=== PATIENT | female | born 1975 | race Caucasian/White ===

== ENCOUNTER 2020-09-18 18:30 | Inpatient (IN) | payer BC, OTHER ==
[~2020-09-18] VITALS: Ht 172.7 cm; Wt 93.3 kg
[2020-09-18 19:07] LABS: ABG BASE EXCESS -0.2 mmol/L (-2.0-3.0); ABG HCO3 22.6 mmol/L (21.0-28.0); ABG OXYGEN SATURATION 91.2 % (95.0-99.0); ABG PCO2 31 mmHg (32-45)
[2020-09-18 19:23] VITALS: BP 141/81
[2020-09-18 19:25] LABS: BASOPHILS % (AUTO) 0.1 % (0.0-5.0); EOSINOPHILS % (AUTO) 2.6 % (0.0-8.0); HEMATOCRIT 35.7 % (36-48); LYMPHOCYTES % (AUTO) 16.7 % (21.0-51.0); MEAN CORPUSCULAR HEMOGLOBIN 29.4 pg (27.0-33.0); MEAN CORPUSCULAR HGB CONC 32.8 g/dL (32.0-36.0); MEAN CORPUSCULAR VOLUME 89.7 fL (79-99); MONOCYTES % (AUTO) 5.4 % (3.0-13.0); NEUTROPHILS % (AUTO) 74.7 % (40.0-77.0); PLATELET COUNT (AUTO) 199 K/uL (130-400); RED BLOOD CELL COUNT(AUTO) 3.98 MIL/uL (4.00-5.50); RED CELL DISTRIBUTION WIDTH 13.3 % (11.0-15.5); WHITE BLOOD COUNT (AUTO) 7.8 K/uL (4.8-10.8)
[2020-09-18] MEDS ORDERED: ALBUTEROL INHALER 90MCG/INH IH PRN (19:30)
[2020-09-18 19:36] LABS: CREATININE 0.9 mg/dL (0.5-1.5); POTASSIUM 3.6 mmol/L (3.5-5.1)
[2020-09-18 19:41] LABS: ALBUMIN 3.4 g/dL (3.5-5.0); BILIRUBIN,TOTAL 0.7 mg/dL (0.2-1.0); TOTAL PROTEIN, SERUM 7.9 g/dL (6.0-8.3)
[2020-09-18 19:44] VITALS: BP 139/77
[2020-09-18 19:59] LABS: B-TYPE NATRIURETIC PEPTIDE 34 pg/mL (0-100)
[2020-09-18] MEDS ORDERED: ACETAMINOPHEN WITH CODEINE 1 TAB TAB PO ONE (20:30)
[2020-09-18] MEDS ORDERED: ONDANSETRON 4MG INJ IVP ONE (20:30)
[2020-09-18] MEDS ORDERED: ERGOCALCIFEROL (VITAMIN D2) 50,000 UNIT CAPSULE PO ONE (21:00)
[2020-09-18] MEDS ORDERED: LACTATED RINGERS 1000ML 1,000 ML IV SCH (21:00)
[2020-09-18] MEDS ORDERED: FAMOTIDINE 20MG TAB PO SCH (21:00)
[2020-09-18] MEDS ORDERED: 0.9%NACL 1000ML 1,000 ML IV SCH (21:00)
[2020-09-18] MEDS ORDERED: PHARMACY COMMUNICATION**REMDESIVIR ORDER MISC SCH (21:00)
[2020-09-18] MEDS: DOXYCYCLINE 100MG+NS 250ML IV SCH (21:45)
[2020-09-18] MEDS: DEXAMETHASONE SOD PHOSPHATE 4 MG/ML 1ML VIAL IVP SCH (21:45)
[2020-09-18] MEDS: CEFTRIAXONE 1G VIAL IVP SCH (21:46)
[2020-09-18] MEDS ORDERED: ALBUTEROL INHALER 90MCG/INH IH SCH (23:30)
[2020-09-19] MEDS: ALBUTEROL INHALER 90MCG/INH IH SCH ×4 (00:18→17:14)
[2020-09-19 05:09] VITALS: BP 118/77
[2020-09-19] MEDS: LEVOTHYROXINE 50 MCG TABLET PO SCH (05:43)
[2020-09-19 05:59] LABS: HEMATOCRIT 31.9 % (36-48); LYMPHOCYTES % (AUTO) 14.6 % (21.0-51.0); MEAN CORPUSCULAR HEMOGLOBIN 29.2 pg (27.0-33.0); MEAN CORPUSCULAR HGB CONC 32.9 g/dL (32.0-36.0); MEAN CORPUSCULAR VOLUME 88.6 fL (79-99); MONOCYTES % (AUTO) 3.5 % (3.0-13.0); NEUTROPHILS % (AUTO) 81.3 % (40.0-77.0); PLATELET COUNT (AUTO) 193 K/uL (130-400); RED CELL DISTRIBUTION WIDTH 13.2 % (11.0-15.5); WHITE BLOOD COUNT (AUTO) 5.4 K/uL (4.8-10.8)
[2020-09-19 06:28] LABS: ALBUMIN 2.9 g/dL (3.5-5.0); BILIRUBIN,TOTAL 0.5 mg/dL (0.2-1.0); CREATININE 0.8 mg/dL (0.5-1.5); POTASSIUM 4.1 mmol/L (3.5-5.1); THYROID STIMULATING HORMONE 1.79 uIU/mL (0.36-3.74); TOTAL PROTEIN, SERUM 7.1 g/dL (6.0-8.3)
[2020-09-19 06:48] LABS: ABG BASE EXCESS 1.4 mmol/L (-2.0-3.0); ABG HCO3 24.6 mmol/L (21.0-28.0); ABG OXYGEN SATURATION 94.5 % (95.0-99.0); ABG PCO2 35 mmHg (32-45)
[2020-09-19 08:00] VITALS: BP 104/68
[2020-09-19] MEDS ORDERED: PHARMACY COMMUNICATION MISC SCH (08:00)
[2020-09-19] MEDS: PANTOPRAZOLE 40 MG TAB DR PO SCH ×2 (09:00→09:21)
[2020-09-19] MEDS: DOXYCYCLINE 100MG+NS 250ML IV SCH ×2 (09:21→20:57)
[2020-09-19] MEDS: PHARMACY COMMUNICATION MISC SCH ×3 (09:21→20:26)
[2020-09-19] MEDS: ZINC SULFATE 220 CAPSULE PO SCH (09:22)
[2020-09-19] MEDS: ASCORBIC ACID 500 MG TAB PO SCH (09:22)
[2020-09-19] MEDS: CEFTRIAXONE 1G VIAL IVP SCH ×2 (09:22→20:57)
[2020-09-19] MEDS: ENOXAPARIN SODIUM 40 MG/0.4 ML SYRINGE SQ SCH (09:25)
[2020-09-19] MEDS ORDERED: COMPOUND IV REFRIGERATED 1 EACH IVSOLN MISC PRN (11:30)
[2020-09-19 12:00] VITALS: BP 108/67
[2020-09-19] MEDS ORDERED: TRAMADOL HCL 50 MG TABLET PO PRN (12:00)
[2020-09-19] MEDS: BARICITINIB (EUA) 2 MG TABLET PO SCH (12:06)
[2020-09-19] MEDS: ACETAMINOPHEN 325 MG TAB PO PRN ×3 (12:14→20:58)
[2020-09-19] MEDS ORDERED: REMDESIVIR (EUA) 520 200 MG in 0.9% NACL 250ML 250 ML IV SCH (15:00)
[2020-09-19] MEDS: ONDANSETRON 4MG INJ IV PRN (17:27)
[2020-09-19 18:32] VITALS: BP 104/65
[2020-09-19 20:00] VITALS: BP 116/54
[2020-09-19] MEDS: DEXAMETHASONE SOD PHOSPHATE 4 MG/ML 1ML VIAL IVP SCH (20:57)
[2020-09-20] VITALS (9 sets, daily range): BP systolic 96–125; BP diastolic 30–77
[2020-09-20] MEDS: ALBUTEROL INHALER 90MCG/INH IH SCH ×5 (00:29→23:46)
[2020-09-20] MEDS: PHARMACY COMMUNICATION MISC SCH ×6 (01:30→21:30)
[2020-09-20] MEDS: ACETAMINOPHEN 325 MG TAB PO PRN ×3 (02:01→20:15)
[2020-09-20] MEDS: REMDESIVIR LABS MISC SCH (06:00)
[2020-09-20] MEDS: LEVOTHYROXINE 50 MCG TABLET PO SCH (06:38)
[2020-09-20] MEDS: PANTOPRAZOLE 40 MG TAB DR PO SCH (09:37)
[2020-09-20] MEDS: BARICITINIB (EUA) 2 MG TABLET PO SCH (09:37)
[2020-09-20] MEDS: DOXYCYCLINE 100MG+NS 250ML IV SCH ×2 (09:37→21:47)
[2020-09-20] MEDS: CEFTRIAXONE 1G VIAL IVP SCH ×2 (09:37→21:46)
[2020-09-20] MEDS: ASCORBIC ACID 500 MG TAB PO SCH (09:37)
[2020-09-20] MEDS: ENOXAPARIN SODIUM 40 MG/0.4 ML SYRINGE SQ SCH (09:38)
[2020-09-20] MEDS: ZINC SULFATE 220 CAPSULE PO SCH (09:38)
[2020-09-20 09:53] LABS: ALBUMIN 3.1 g/dL (3.5-5.0); BILIRUBIN,TOTAL 0.5 mg/dL (0.2-1.0); CREATININE 0.7 mg/dL (0.5-1.5); CRP QUANTITATIVE 77.6 mg/L (0.00-9.0); POTASSIUM 4.2 mmol/L (3.5-5.1); TOTAL PROTEIN, SERUM 7.8 g/dL (6.0-8.3)
[2020-09-20] MEDS: ONDANSETRON 4MG INJ IV PRN (10:10)
[2020-09-20] MEDS: REMDESIVIR (EUA) 520 100 MG in 0.9% NACL 250ML 250 ML IV SCH (14:37)
[2020-09-20 21:15] LABS: BASOPHILS % (AUTO) 0.1 % (0.0-5.0); HEMATOCRIT 35.8 % (36-48); LYMPHOCYTES % (AUTO) 25.8 % (21.0-51.0); MEAN CORPUSCULAR HGB CONC 31.6 g/dL (32.0-36.0); MEAN CORPUSCULAR VOLUME 91.8 fL (79-99); MONOCYTES % (AUTO) 8.3 % (3.0-13.0); PLATELET COUNT (AUTO) 266 K/uL (130-400); RED CELL DISTRIBUTION WIDTH 13.5 % (11.0-15.5)
[2020-09-20] MEDS: DEXAMETHASONE SOD PHOSPHATE 4 MG/ML 1ML VIAL IVP SCH (21:46)
[2020-09-21] VITALS (10 sets, daily range): BP systolic 103–122; BP diastolic 48–71
[2020-09-21] MEDS: PHARMACY COMMUNICATION MISC SCH ×6 (01:30→21:30)
[2020-09-21] MEDS: REMDESIVIR LABS MISC SCH (06:23)
[2020-09-21] MEDS: ALBUTEROL INHALER 90MCG/INH IH SCH ×3 (06:23→17:22)
[2020-09-21 06:34] LABS: BASOPHILS % (AUTO) 0.1 % (0.0-5.0); HEMATOCRIT 33.8 % (36-48); MEAN CORPUSCULAR HEMOGLOBIN 29.4 pg (27.0-33.0); MEAN CORPUSCULAR HGB CONC 32.2 g/dL (32.0-36.0); MEAN CORPUSCULAR VOLUME 91.1 fL (79-99); MONOCYTES % (AUTO) 5.3 % (3.0-13.0); NEUTROPHILS % (AUTO) 79.8 % (40.0-77.0); PLATELET COUNT (AUTO) 304 K/uL (130-400); RED BLOOD CELL COUNT(AUTO) 3.71 MIL/uL (4.00-5.50); RED CELL DISTRIBUTION WIDTH 13.3 % (11.0-15.5); WHITE BLOOD COUNT (AUTO) 7.7 K/uL (4.8-10.8)
[2020-09-21 06:59] LABS: ALBUMIN 2.8 g/dL (3.5-5.0); BILIRUBIN,TOTAL 0.4 mg/dL (0.2-1.0); CREATININE 0.6 mg/dL (0.5-1.5); CRP QUANTITATIVE 42.5 mg/L (0.00-9.0); POTASSIUM 4.1 mmol/L (3.5-5.1); TOTAL PROTEIN, SERUM 7.1 g/dL (6.0-8.3)
[2020-09-21] MEDS: LEVOTHYROXINE 50 MCG TABLET PO SCH (07:53)
[2020-09-21] MEDS: DOXYCYCLINE 100MG+NS 250ML IV SCH ×2 (08:17→21:49)
[2020-09-21] MEDS: PANTOPRAZOLE 40 MG TAB DR PO SCH (08:18)
[2020-09-21] MEDS: ZINC SULFATE 220 CAPSULE PO SCH (08:18)
[2020-09-21] MEDS: ASCORBIC ACID 500 MG TAB PO SCH (08:18)
[2020-09-21] MEDS: CEFTRIAXONE 1G VIAL IVP SCH ×2 (08:18→21:49)
[2020-09-21] MEDS: ENOXAPARIN SODIUM 40 MG/0.4 ML SYRINGE SQ SCH (08:19)
[2020-09-21] MEDS: BARICITINIB (EUA) 2 MG TABLET PO SCH (08:53)
[2020-09-21] MEDS: REMDESIVIR (EUA) 520 100 MG in 0.9% NACL 250ML 250 ML IV SCH (14:38)
[2020-09-21] MEDS: DEXAMETHASONE SOD PHOSPHATE 4 MG/ML 1ML VIAL IVP SCH (21:49)
[2020-09-21] MEDS: ACETAMINOPHEN 325 MG TAB PO PRN (21:49)
[2020-09-22] VITALS (7 sets, daily range): BP systolic 112–138; BP diastolic 42–75
[2020-09-22] MEDS: ALBUTEROL INHALER 90MCG/INH IH SCH ×4 (00:06→17:37)
[2020-09-22] MEDS: PHARMACY COMMUNICATION MISC SCH ×2 (01:30→05:30)
[2020-09-22] MEDS: REMDESIVIR LABS MISC SCH (06:00)
[2020-09-22] MEDS: LEVOTHYROXINE 50 MCG TABLET PO SCH (06:30)
[2020-09-22] MEDS: ASCORBIC ACID 500 MG TAB PO SCH (08:51)
[2020-09-22] MEDS: PANTOPRAZOLE 40 MG TAB DR PO SCH (08:51)
[2020-09-22] MEDS: CEFTRIAXONE 1G VIAL IVP SCH ×2 (08:51→20:00)
[2020-09-22] MEDS: ZINC SULFATE 220 CAPSULE PO SCH (08:51)
[2020-09-22] MEDS: DOXYCYCLINE 100MG+NS 250ML IV SCH ×2 (08:51→19:59)
[2020-09-22] MEDS: ENOXAPARIN SODIUM 40 MG/0.4 ML SYRINGE SQ SCH ×2 (08:53→20:00)
[2020-09-22] MEDS: BARICITINIB (EUA) 2 MG TABLET PO SCH (09:25)
[2020-09-22] MEDS ORDERED: BENZONATATE 100 MG CAPSULE PO PRN (11:30)
[2020-09-22 11:33] LABS: CRP QUANTITATIVE 17.8 mg/L (0.00-9.0)
[2020-09-22] MEDS: GUAIFENESIN-DM 200/20 MG 10 ML PO SCH ×3 (12:15→23:54)
[2020-09-22] MEDS: REMDESIVIR (EUA) 520 100 MG in 0.9% NACL 250ML 250 ML IV SCH (15:20)
[2020-09-22] MEDS: ACETAMINOPHEN 325 MG TAB PO PRN (17:37)
[2020-09-22] MEDS ORDERED: 0.9% NACL 250ML 250 ML ONE (19:44)
[2020-09-22] MEDS: DEXAMETHASONE SOD PHOSPHATE 4 MG/ML 1ML VIAL IVP SCH (19:59)
[2020-09-23] VITALS (7 sets, daily range): BP systolic 106–125; BP diastolic 49–71
[2020-09-23] MEDS ORDERED: LEVO50 PO (01:02)
[2020-09-23 04:20] LABS: BASOPHILS % (AUTO) 0.2 % (0.0-5.0); HEMATOCRIT 31.1 % (36-48); LYMPHOCYTES % (AUTO) 11.4 % (21.0-51.0); MEAN CORPUSCULAR HEMOGLOBIN 29.1 pg (27.0-33.0); MEAN CORPUSCULAR HGB CONC 33.1 g/dL (32.0-36.0); MEAN CORPUSCULAR VOLUME 87.9 fL (79-99); NEUTROPHILS % (AUTO) 79.2 % (40.0-77.0); PLATELET COUNT (AUTO) 395 K/uL (130-400); RED BLOOD CELL COUNT(AUTO) 3.54 MIL/uL (4.00-5.50); RED CELL DISTRIBUTION WIDTH 12.8 % (11.0-15.5); WHITE BLOOD COUNT (AUTO) 10.2 K/uL (4.8-10.8)
[2020-09-23 04:41] LABS: ALBUMIN 2.9 g/dL (3.5-5.0); BILIRUBIN,TOTAL 0.5 mg/dL (0.2-1.0); CREATININE 0.7 mg/dL (0.5-1.5); CRP QUANTITATIVE 15.3 mg/L (0.00-9.0); MAGNESIUM 2.1 mg/dL (1.80-2.40); TOTAL PROTEIN, SERUM 7.3 g/dL (6.0-8.3)
[2020-09-23] MEDS: GUAIFENESIN-DM 200/20 MG 10 ML PO SCH ×4 (06:07→22:35)
[2020-09-23] MEDS: REMDESIVIR LABS MISC SCH (06:07)
[2020-09-23] MEDS: LEVOTHYROXINE 50 MCG TABLET PO SCH (06:07)
[2020-09-23] MEDS: ALBUTEROL INHALER 90MCG/INH IH SCH ×3 (06:22→18:46)
[2020-09-23] MEDS: DOXYCYCLINE 100MG+NS 250ML IV SCH ×2 (09:00→21:01)
[2020-09-23] MEDS: PANTOPRAZOLE 40 MG TAB DR PO SCH (09:06)
[2020-09-23] MEDS: ASCORBIC ACID 500 MG TAB PO SCH (09:06)
[2020-09-23] MEDS: ZINC SULFATE 220 CAPSULE PO SCH (09:06)
[2020-09-23] MEDS: ENOXAPARIN SODIUM 40 MG/0.4 ML SYRINGE SQ SCH ×2 (09:06→21:00)
[2020-09-23] MEDS: CEFTRIAXONE 1G VIAL IVP SCH ×2 (09:07→21:01)
[2020-09-23] MEDS: BARICITINIB (EUA) 2 MG TABLET PO SCH (10:22)
[2020-09-23] MEDS: ACETAMINOPHEN 325 MG TAB PO PRN ×2 (10:56→17:29)
[2020-09-23] MEDS: REMDESIVIR (EUA) 520 100 MG in 0.9% NACL 250ML 250 ML IV SCH (15:14)
[2020-09-23] MEDS ORDERED: 0.9% NACL 250ML 250 ML ONE (20:34)
[2020-09-23] MEDS: DEXAMETHASONE SOD PHOSPHATE 4 MG/ML 1ML VIAL IVP SCH (21:01)
[2020-09-23] MEDS: PHARMACY COMMUNICATION MISC SCH (21:30)
[2020-09-24] MEDS: ALBUTEROL INHALER 90MCG/INH IH SCH ×5 (00:04→23:13)
[2020-09-24] MEDS: PHARMACY COMMUNICATION MISC SCH ×6 (01:30→23:13)
[2020-09-24 04:00] VITALS: BP 107/69
[2020-09-24 04:40] VITALS: BP 107/69
[2020-09-24 05:03] LABS: BASOPHILS % (AUTO) 0.3 % (0.0-5.0); HEMATOCRIT 31.4 % (36-48); LYMPHOCYTES % (AUTO) 10.4 % (21.0-51.0); MEAN CORPUSCULAR HEMOGLOBIN 28.6 pg (27.0-33.0); MEAN CORPUSCULAR HGB CONC 32.8 g/dL (32.0-36.0); MEAN CORPUSCULAR VOLUME 87.2 fL (79-99); MONOCYTES % (AUTO) 5.1 % (3.0-13.0); NEUTROPHILS % (AUTO) 80.3 % (40.0-77.0); PLATELET COUNT (AUTO) 454 K/uL (130-400); RED CELL DISTRIBUTION WIDTH 13.1 % (11.0-15.5); WHITE BLOOD COUNT (AUTO) 11.4 K/uL (4.8-10.8)
[2020-09-24 05:36] LABS: ALBUMIN 2.8 g/dL (3.5-5.0); BILIRUBIN,TOTAL 0.4 mg/dL (0.2-1.0); CREATININE 0.6 mg/dL (0.5-1.5); CRP QUANTITATIVE 18.6 mg/L (0.00-9.0); POTASSIUM 3.8 mmol/L (3.5-5.1); TOTAL PROTEIN, SERUM 7.1 g/dL (6.0-8.3)
[2020-09-24] MEDS: GUAIFENESIN-DM 200/20 MG 10 ML PO SCH ×4 (05:41→23:12)
[2020-09-24] MEDS: LEVOTHYROXINE 50 MCG TABLET PO SCH (05:42)
[2020-09-24 08:00] VITALS: BP 124/80
[2020-09-24] MEDS: DOXYCYCLINE 100MG+NS 250ML IV SCH ×2 (09:00→20:26)
[2020-09-24] MEDS: CEFTRIAXONE 1G VIAL IVP SCH ×2 (09:21→20:26)
[2020-09-24] MEDS: ENOXAPARIN SODIUM 40 MG/0.4 ML SYRINGE SQ SCH ×2 (09:22→20:27)
[2020-09-24] MEDS: BARICITINIB (EUA) 2 MG TABLET PO SCH (09:22)
[2020-09-24] MEDS: PANTOPRAZOLE 40 MG TAB DR PO SCH (09:22)
[2020-09-24] MEDS: ZINC SULFATE 220 CAPSULE PO SCH (09:22)
[2020-09-24] MEDS: ASCORBIC ACID 500 MG TAB PO SCH (09:22)
[2020-09-24 12:00] VITALS: BP 126/60
[2020-09-24 20:13] VITALS: BP 125/75
[2020-09-24] MEDS: DEXAMETHASONE SOD PHOSPHATE 4 MG/ML 1ML VIAL IVP SCH (20:26)
[2020-09-25 00:17] VITALS: BP 124/75
[2020-09-25 04:24] VITALS: BP 102/57
[2020-09-25] MEDS: PHARMACY COMMUNICATION MISC SCH ×2 (04:33→09:30)
[2020-09-25] MEDS: GUAIFENESIN-DM 200/20 MG 10 ML PO SCH ×2 (06:02→12:04)
[2020-09-25] MEDS: LEVOTHYROXINE 50 MCG TABLET PO SCH (06:03)
[2020-09-25] MEDS: ALBUTEROL INHALER 90MCG/INH IH SCH ×2 (06:03→12:05)
[2020-09-25 07:42] VITALS: BP 101/43
[2020-09-25] MEDS: BARICITINIB (EUA) 2 MG TABLET PO SCH (09:30)
[2020-09-25] MEDS: PANTOPRAZOLE 40 MG TAB DR PO SCH (09:30)
[2020-09-25] MEDS: CEFTRIAXONE 1G VIAL IVP SCH (09:30)
[2020-09-25] MEDS: ZINC SULFATE 220 CAPSULE PO SCH (09:30)
[2020-09-25] MEDS: DOXYCYCLINE 100MG+NS 250ML IV SCH (09:30)
[2020-09-25] MEDS: ASCORBIC ACID 500 MG TAB PO SCH (09:30)
[2020-09-25] MEDS: ENOXAPARIN SODIUM 40 MG/0.4 ML SYRINGE SQ SCH (09:31)
[2020-09-25 12:53] VITALS: BP 119/56
[2020-09-25 15:45] VITALS: BP 97/53
[2020-09-25] MEDS ORDERED: PANT40TA PO (16:57)
[2020-09-25] MEDS ORDERED: ALBUHFA IH (16:57)
[2020-09-25] MEDS ORDERED: BENZ-70 PO (16:57)
[2020-09-25] MEDS ORDERED: DOXY100C5 PO (16:57)
[2020-09-25] MEDS ORDERED: AEC81 PO (16:57)
[2020-09-25] MEDS ORDERED: ASCO500T20 PO (16:57)
[2020-09-25] MEDS ORDERED: ZINC220C6 PO (16:57)
[2020-09-25] MEDS ORDERED: DEXA6TAB PO (16:57)
[2020-09-25 20:42] VITALS: BP 138/76
== END 2020-09-25 23:00 | disposition home or self-care (01) | DRG 871 ==
LOC: EDH 18:30 → EDHIP 20:49 → 4AH 09-22 08:28
PROVIDERS: ADMIT Internal Medicine; ATTEND Internal Medicine
PROC: XW033E5 Introduction of Remdesivir Anti-infective into Peripheral Vein, Percutaneous Approach, New Technology Group 5 (ICD-10-PCS; principal; 2020-09-19)
PROC: XW0DXM6 Introduction of Baricitinib into Mouth and Pharynx, External Approach, New Technology Group 6 (ICD-10-PCS; 2020-09-19)
PROC: 5A0935A Assistance with Respiratory Ventilation, Less than 24 Consecutive Hours, High Flow/Velocity Cannula (ICD-10-PCS; 2020-09-20)
PROC: 5A0935A Assistance with Respiratory Ventilation, Less than 24 Consecutive Hours, High Flow/Velocity Cannula (ICD-10-PCS; 2020-09-21)
DX: A41.89 Other specified sepsis (principal); J12.82 Pneumonia due to coronavirus disease 2019; U07.1 COVID-19; J80 Acute respiratory distress syndrome; E87.1 Hypo-osmolality and hyponatremia; E87.6 Hypokalemia; D64.9 Anemia, unspecified; E03.9 Hypothyroidism, unspecified; E66.9 Obesity, unspecified; Z68.30 Body mass index [BMI] 30.0-30.9, adult; Z88.8 Allergy status to other drugs, medicaments and biological substances
CPT/HCPCS: 36415; 36600; 71045; 80053; 82435; 82550; 82728; 82803; 82947; 82948; 83605; 83615; 83735; 83880; 84132; 84145; 84295; 84443; 84484; 84703; 85018; 85025; 85378; 86140; 87040; 87426; 87804; 87880; 93005; 93970; 94760; G0378; J0696; J1100; J1650; J2405; J3490; J7050